=== PATIENT | male | born 1965 | race Caucasian/White ===

== ENCOUNTER 2017-03-04 20:31 | Emergency (ER) | payer OTHER ==
--- NOTE | 2017-03-04 21:26 | ED CLINICAL REPORT ---
Clinical Report - Physicians/Mid Levels [facility] [address] [place] [address] 03/04/2017 20:33 Patient: ADOLPH CARPENTER Time Seen: 20:49; initial patient contact. Arrived- By private vehicle. Historian- patient. HISTORY OF PRESENT ILLNESS Chief Complaint: Injury to the left middle finger. The injury happened today. Occurred at home. The patient sustained a laceration from a sharp edge. Patient is experiencing moderate pain. Patient denies injury to the head or neck. REVIEW OF SYSTEMS The patient sustained a laceration. No swelling, tingling, numbness or foreign body. All systems otherwise negative, except as recorded above. PAST HISTORY Hypothyroidism. SURGERIES: Thyroid Surgery. Medications: Synthroid Oral (Tablet 125 mcg) 1 tablet, daily. Allergies: No Known Drug Allergy. SOCIAL HISTORY Never smoker. Occasional alcohol use. No drug use. ADDITIONAL NOTES The nursing notes have been reviewed. PHYSICAL EXAM Vital Signs: 03/04/2017 20:36 BP: 133/92. HR: 77. RR: 18. O2 saturation: 96%. Temp: 97.9 F. Pain level now: 8/10. Have been reviewed. Hypertensive. Heart rate normal. Respiratory rate normal. Temperature normal. Oxygen saturation normal. Appearance: Alert. Oriented X3. Head: Head atraumatic. Skin: Skin warm and dry. Extremities: Tip of left middle finger: subcutaneous laceration; full thickness tip amputation present. No laceration involving the nail bed or nail fold or nail avulsion on the left middle finger. No wrist injury. No hand injury. Hand and wrist exam otherwise negative. Extremities otherwise negative. Neuro, Vascular and Tendons: Vascular status intact. Motor intact. Tendon function intact. Neuro: Oriented X 3. LABS, X-RAYS, AND EKG Lt UE Digits X-ray: No fracture. No bony lesion. (Soft tissue amputation, no bony involvement). Views: AP, lateral and oblique of 3rd finger. Technique: good. The X-rays were independently viewed by me and interpreted contemporaneously by me. Prior films were not available for comparison. Interpretation time: 21:22. PROGRESS AND PROCEDURES Disposition: Discharged home in good and improved condition. Condition: good. CLINICAL IMPRESSION Single deep skin avulsion of the left middle finger. (No repair). Treatment not delayed. No infection present or foreign body present. INSTRUCTIONS Protect wound and keep wound area clean. (Leave bandage in place until tomorrow afternoon). Change dressing twice daily. You may wash wounds briefly, then dry. Apply bacitracin twice daily. Your Current Medications: CONTINUE TAKING THE FOLLOWING MEDICATIONS: Synthroid Oral : Tablet 125 mcg, 1 tablet daily. Prescription Medications: Hydrocodone/APAP 5mg / 325mg: take 1 orally every 6 hours as needed for pain. Dispense fifteen (15). No refill. Follow-up: Follow up with your doctor in about two days. Call for an appointment. Screening today revealed the patient's blood pressure to be in the hypertensive range. The patient should follow up with a primary care provider for blood pressure management. (Electronically signed by Panchito Saha Dr. 03/04/2017 21:30)
--- NOTE | 2017-03-04 21:26 | ED CLINICAL REPORT ---
Clinical Report - Physicians/Mid Levels [facility] [address] [place] [address] 03/04/2017 20:33 Patient: ADOLPH CARPENTER Time Seen: 20:49; initial patient contact. Arrived- By private vehicle. Historian- patient. HISTORY OF PRESENT ILLNESS Chief Complaint: Injury to the left middle finger. The injury happened today. Occurred at home. The patient sustained a laceration from a sharp edge. Patient is experiencing moderate pain. Patient denies injury to the head or neck. REVIEW OF SYSTEMS The patient sustained a laceration. No swelling, tingling, numbness or foreign body. All systems otherwise negative, except as recorded above. PAST HISTORY Hypothyroidism. SURGERIES: Thyroid Surgery. Medications: Synthroid Oral (Tablet 125 mcg) 1 tablet, daily. Allergies: No Known Drug Allergy. SOCIAL HISTORY Never smoker. Occasional alcohol use. No drug use. ADDITIONAL NOTES The nursing notes have been reviewed. PHYSICAL EXAM Vital Signs: 03/04/2017 20:36 BP: 133/92. HR: 77. RR: 18. O2 saturation: 96%. Temp: 97.9 F. Pain level now: 8/10. Have been reviewed. Hypertensive. Heart rate normal. Respiratory rate normal. Temperature normal. Oxygen saturation normal. Appearance: Alert. Oriented X3. Head: Head atraumatic. Skin: Skin warm and dry. Extremities: Tip of left middle finger: subcutaneous laceration; full thickness tip amputation present. No laceration involving the nail bed or nail fold or nail avulsion on the left middle finger. No wrist injury. No hand injury. Hand and wrist exam otherwise negative. Extremities otherwise negative. Neuro, Vascular and Tendons: Vascular status intact. Motor intact. Tendon function intact. Neuro: Oriented X 3. LABS, X-RAYS, AND EKG Lt UE Digits X-ray: No fracture. No bony lesion. (Soft tissue amputation, no bony involvement). Views: AP, lateral and oblique of 3rd finger. Technique: good. The X-rays were independently viewed by me and interpreted contemporaneously by me. Prior films were not available for comparison. Interpretation time: 21:22. PROGRESS AND PROCEDURES Disposition: Discharged home in good and improved condition. Condition: good. CLINICAL IMPRESSION Single deep skin avulsion of the left middle finger. (No repair). Treatment not delayed. No infection present or foreign body present. INSTRUCTIONS Protect wound and keep wound area clean. (Leave bandage in place until tomorrow afternoon). Change dressing twice daily. You may wash wounds briefly, then dry. Apply bacitracin twice daily. Your Current Medications: CONTINUE TAKING THE FOLLOWING MEDICATIONS: Synthroid Oral : Tablet 125 mcg, 1 tablet daily. Prescription Medications: Hydrocodone/APAP 5mg / 325mg: take 1 orally every 6 hours as needed for pain. Dispense fifteen (15). No refill. Follow-up: Follow up with your doctor in about two days. Call for an appointment. Screening today revealed the patient's blood pressure to be in the hypertensive range. The patient should follow up with a primary care provider for blood pressure management. (Electronically signed by Panchito Saha Dr. 03/04/2017 21:30)
--- NOTE | 2017-03-04 21:26 | ED ORDER SUMMARY ---
..... Patient: ADOLPH CARPENTER OrderSheet [facility] VisitID: [id number] [address] [place] [address] 51y, M Registration Date/Time: 03/04/2017 ORDER SHEET Weight: 92.9 kg (stated) Allergies: No Known Drug Allergy GENERAL ORDERS: Finger Left (3rd) Urgent (20:50 03/04/2017 Lauren Mccullough) (Ack 20:51 AMcQuoid ER Tech1) (20:59 RFay) MEDICATION ORDERS: Tdap IM 0.5 mL (NOW, per protocol) (20:48 03/04/2017 Lauren Mccullough) (Ack 20:50 Rosalie Ellis) (21:26 Lianna Ellis) IV FLUIDS: ORDER SHEET NOTES: [Electronically signed by Panchito Saha Dr. (21:30 03/04/2017)] [Electronically signed by Ary Blair R.N. (21:56 03/04/2017)] [Electronically locked/signed by Ary Blair R.N. (21:56 03/04/2017)]
--- NOTE | 2017-03-04 21:26 | ED NURSING NOTES ---
Clinical Report - Nurses [facility] [address] [place] [address] 03/04/2017 20:33 Patient: ADOLPH CARPENTER TRIAGE Triage time 20:30. Acuity: LEVEL 4. Chief Complaint: INJURY TO LEFT HAND. --20:42 Ary Blair R.N. 20:36 03/04/17. BP: 133/92 taken on the left arm, while sitting. HR: 77 (regular). RR: 18 (regular and unlabored). O2 saturation: 96% on room air. Temp: 97.9 F (oral). Pain level now: 05/25. --20:42 Ary Blair R.N. Weight: 92.9 kg stated. Height/Length: 74 inches. BMI: 26.3. --20:41 Ary Blair R.N. Medications Synthroid Oral (Tablet 125 mcg) 1 tablet, daily. --20:38 Ary Blair R.N. Allergies No Known Drug Allergy. --20:39 Ary Blair R.N. History Arrived by private vehicle. Historian: patient. Accompanied by family. Primary physician (none). This occurred (about 5 hours ago). He sustained a laceration from a sharp edge (pruning marry). ( pt cut pad part of left middle finger off while cutting plants). Treatment SKY DIVER: Applied bandage. (several bandage changes and abx ointment). PAST MEDICAL HX: Date of last tetanus shot cannot be recalled. SOCIAL HX: Never smoker. Alcohol use; consumes two beers a week. No infectious disease exposure. ABUSE ASSESSMENT: No report of abuse. SELF HARM ASSESSMENT: A self harm assessment was performed. The patient answered "no" to the question "Have you recently felt down, depressed, or hopeless?", "Have you noticed less interest or pleasure in doing things?", "Do you have thoughts of harming or killing yourself?", "Are you here because you tried to hurt yourself?", "Have you ever tried to hurt yourself before today?", "Have you recently had thoughts about harming or killing others?" and "Do you have any dangerous items in your possession?". --20:42 Ary Blair R.N. PROBLEMS: Hypothyroidism. --20:39 Ary Blair R.N. ADDITIONAL SURGERIES: Thyroid Surgery. --20:39 Ary Blair R.N. Interventions ID band on patient. --20:42 Ary Blair R.N. PHYSICAL ASSESSMENT Ambulatory to room. GENERAL / NEURO / PSYCH: Oriented X 4. Alert. Appears in no acute distress. EXTREMITIES: Capillary refill is less than 2 seconds in the extremities. Extremity pulses are within normal limits. Extremities exhibit normal ROM. Neuro-vascular status intact to the extremity. Left hand: laceration with bleeding (tip of left middle finger). SKIN: Skin is warm and dry. --20:43 Ary Blair R.N. NURSING PROGRESS NOTES Two patient identifiers checked. Call light placed in reach. Side rails up x 1. Bed placed in lowest position. Brakes of bed on. Patient ready for evaluation- chart flagged. --20:43 Ary Blair R.N. Wound cleansed with water and Hibiclens (soaking). --20:49 Ary Blair R.N. 21:20 03/04/17. ( Gelfoam strip applied to finger tip). --21:41 Jus Cedeño R.N. 21:25 03/04/2017 TDAP IM 0.5 mL given. (Lot#: [id number], expiration date: 02/23/2019, [employer]liance [employer] Counter Clerk: [employer]i pasteur). Given in the right deltoid. Allergies verified and confirmed 5 rights. Vaccine information statement provided to the patient. --21:26 Laura-Emily Hendrickson R.N. DISPOSITION / DISCHARGE Condition at departure: improved and stable. No learning barriers present. Discharge instructions provided and reviewed with the patient. Reviewed medication(s) side effects, precautions, dosing and course information. Prescription(s) given to the patient. Reviewed wound care instructions. Patient verbalized understanding. Written instructions provided in Omani. No activity restrictions or note given. The patient was discharged home and accompanied by spouse. He left the Emergency Department ambulatory and via private vehicle. Spouse driving. --21:55 Ary Blair R.N. 21:53 03/04/17. BP: 125/76 taken on the right arm, while lying. HR: 73 (regular and normal rate). RR: 18. O2 saturation: 98% on room air. Temp: deferred. Pain level now: 03/25. --21:55 Ary Blair R.N. Departure time: 2148. --21:55 Ary Blair R.N. Locked/Released at 03/04/2017 21:56 by Ary Blair R.N.
--- NOTE | 2017-03-04 21:26 | ED NURSING NOTES ---
Clinical Report - Nurses [facility] [address] [place] [address] 03/04/2017 20:33 Patient: ADOLPH CARPENTER TRIAGE Triage time 20:30. Acuity: LEVEL 4. Chief Complaint: INJURY TO LEFT HAND. --20:42 Ary Blair R.N. 20:36 03/04/17. BP: 133/92 taken on the left arm, while sitting. HR: 77 (regular). RR: 18 (regular and unlabored). O2 saturation: 96% on room air. Temp: 97.9 F (oral). Pain level now: 05/25. --20:42 Ary Blair R.N. Weight: 92.9 kg stated. Height/Length: 74 inches. BMI: 26.3. --20:41 Ary Blair R.N. Medications Synthroid Oral (Tablet 125 mcg) 1 tablet, daily. --20:38 Ary Blair R.N. Allergies No Known Drug Allergy. --20:39 Ary Blair R.N. History Arrived by private vehicle. Historian: patient. Accompanied by family. Primary physician (none). This occurred (about 5 hours ago). He sustained a laceration from a sharp edge (pruning marry). ( pt cut pad part of left middle finger off while cutting plants). Treatment BINGO ATTENDANT: Applied bandage. (several bandage changes and abx ointment). PAST MEDICAL HX: Date of last tetanus shot cannot be recalled. SOCIAL HX: Never smoker. Alcohol use; consumes two beers a week. No infectious disease exposure. ABUSE ASSESSMENT: No report of abuse. SELF HARM ASSESSMENT: A self harm assessment was performed. The patient answered "no" to the question "Have you recently felt down, depressed, or hopeless?", "Have you noticed less interest or pleasure in doing things?", "Do you have thoughts of harming or killing yourself?", "Are you here because you tried to hurt yourself?", "Have you ever tried to hurt yourself before today?", "Have you recently had thoughts about harming or killing others?" and "Do you have any dangerous items in your possession?". --20:42 Ary Blair R.N. PROBLEMS: Hypothyroidism. --20:39 Ary Blair R.N. ADDITIONAL SURGERIES: Thyroid Surgery. --20:39 Ary Blair R.N. Interventions ID band on patient. --20:42 Ary Blair R.N. PHYSICAL ASSESSMENT Ambulatory to room. GENERAL / NEURO / PSYCH: Oriented X 4. Alert. Appears in no acute distress. EXTREMITIES: Capillary refill is less than 2 seconds in the extremities. Extremity pulses are within normal limits. Extremities exhibit normal ROM. Neuro-vascular status intact to the extremity. Left hand: laceration with bleeding (tip of left middle finger). SKIN: Skin is warm and dry. --20:43 Ary Blair R.N. NURSING PROGRESS NOTES Two patient identifiers checked. Call light placed in reach. Side rails up x 1. Bed placed in lowest position. Brakes of bed on. Patient ready for evaluation- chart flagged. --20:43 Ary Blair R.N. Wound cleansed with water and Hibiclens (soaking). --20:49 Ary Blair R.N. 21:20 03/04/17. ( Gelfoam strip applied to finger tip). --21:41 Jus Cedeño R.N. 21:25 03/04/2017 TDAP IM 0.5 mL given. (Lot#: [id number], expiration date: 02/23/2019, Business Process Coordinator: sanofi pasteur). Given in the right deltoid. Allergies verified and confirmed 5 rights. Vaccine information statement provided to the patient. --21:26 Laura-Emily Hendrickson R.N. DISPOSITION / DISCHARGE Condition at departure: improved and stable. No learning barriers present. Discharge instructions provided and reviewed with the patient. Reviewed medication(s) side effects, precautions, dosing and course information. Prescription(s) given to the patient. Reviewed wound care instructions. Patient verbalized understanding. Written instructions provided in Qatari. No activity restrictions or note given. The patient was discharged home and accompanied by spouse. He left the Emergency Department ambulatory and via private vehicle. Spouse driving. --21:55 Ary Blair R.N. 21:53 03/04/17. BP: 125/76 taken on the right arm, while lying. HR: 73 (regular and normal rate). RR: 18. O2 saturation: 98% on room air. Temp: deferred. Pain level now: 03/25. --21:55 Ary Blair R.N. Departure time: 2148. --21:55 Ary Blair R.N. Locked/Released at 03/04/2017 21:56 by Ary Blair R.N.
--- NOTE | 2017-03-04 21:26 | ED ORDER SUMMARY ---
..... Patient: ADOLPH CARPENTER OrderSheet [facility] VisitID: [id number] [address] [place] [address] 51y, M Registration Date/Time: 03/04/2017 ORDER SHEET Weight: 92.9 kg (stated) Allergies: No Known Drug Allergy GENERAL ORDERS: Finger Left (3rd) Urgent (20:50 03/04/2017 Lauren Mccullough) (Ack 20:51 AMcQuoid ER Tech1) (20:59 RFay) MEDICATION ORDERS: Tdap IM 0.5 mL (NOW, per protocol) (20:48 03/04/2017 Lauren Mccullough) (Ack 20:50 Rosalie Ellis) (21:26 Lianna Ellis) IV FLUIDS: ORDER SHEET NOTES: [Electronically signed by Panchito Saha Dr. (21:30 03/04/2017)] [Electronically signed by Ary Blair R.N. (21:56 03/04/2017)] [Electronically locked/signed by Ary Blair R.N. (21:56 03/04/2017)]
--- NOTE | 2017-03-04 21:56 | ED MED RECONCILIATION SUMMARY ---
Patient: ADOLPH CARPENTER Medication Reconciliation Report [facility] VisitID: [id number] [address] [place] [address] 51y, M Registration Date/Time: 03/04/2017 Weight: 92.9 kg Height/Length: 74 in. BMI: 26.3 ALLERGIES: No Known Drug Allergy The patient's Home Medications are listed below: CONTINUE TAKING THE FOLLOWING MEDICATIONS: Synthroid Oral (125 mcg) 1 tablet, daily The source(s) of the original Home Medication information: Not obtained. The following Medications were given to the patient in the Emergency Department: TDAP [IM] IM 0.5 mL, administered: 03/04/2017 9:25:00 PM The following Medications were prescribed to the patient: Hydrocodone/APAP 5mg / 325mg: take 1 orally every 6 hours as needed for pain. Dispense fifteen (15). No refill. -- Panchito Saha Dr.
--- NOTE | 2017-03-04 21:56 | ED MED RECONCILIATION SUMMARY ---
Patient: ADOLPH CARPENTER Medication Reconciliation Report [facility] VisitID: [id number] [address] [place] [address] 51y, M Registration Date/Time: 03/04/2017 Weight: 92.9 kg Height/Length: 74 in. BMI: 26.3 ALLERGIES: No Known Drug Allergy The patient's Home Medications are listed below: CONTINUE TAKING THE FOLLOWING MEDICATIONS: Synthroid Oral (125 mcg) 1 tablet, daily The source(s) of the original Home Medication information: Not obtained. The following Medications were given to the patient in the Emergency Department: TDAP [IM] IM 0.5 mL, administered: 03/04/2017 9:25:00 PM The following Medications were prescribed to the patient: Hydrocodone/APAP 5mg / 325mg: take 1 orally every 6 hours as needed for pain. Dispense fifteen (15). No refill. -- Panchito Saha Dr.
--- NOTE | 2017-03-04 21:56 | ED MAR SUMMARY ---
..... Medication Administration Record [facility] [address] [place] [address] Patient: ADOLPH CARPENTER Visit ID: [id number] 51y, M Weight: 92.9 kg Height/Length: 74 in BMI: 26.3 ALLERGIES: No Known Drug Allergy Given 21:25 03/04/2017 Emily Funk RKevin Medication Administered: TDAP [IM], Dose: 0.5 mL IM. Medication Ordered: Tdap IM 0.5 mL (NOW, per protocol).
--- NOTE | 2017-03-04 21:56 | ED MAR SUMMARY ---
..... Medication Administration Record [facility] [address] [place] [address] Patient: ADOLPH CARPENTER Visit ID: [id number] 51y, M Weight: 92.9 kg Height/Length: 74 in BMI: 26.3 ALLERGIES: No Known Drug Allergy Given 21:25 03/04/2017 Emily Funk RKevin Medication Administered: TDAP [IM], Dose: 0.5 mL IM. Medication Ordered: Tdap IM 0.5 mL (NOW, per protocol).
--- NOTE | 2017-03-04 21:56 | ED DISCHARGE INSTRUCTIONS ---
Patient: ADOLPH CARPENTER General Instructions [facility] VisitID: [id number] [place] [address] 51y, M Registration Date/Time: 03/04/2017 Single deep skin avulsion of the left middle finger. (No repair). Treatment not delayed. No infection present or foreign body present. INSTRUCTIONS Protect wound and keep wound area clean. (Leave bandage in place until tomorrow afternoon). Change dressing twice daily. You may wash wounds briefly, then dry. Apply bacitracin twice daily. Your Current Medications: CONTINUE TAKING THE FOLLOWING MEDICATIONS: Synthroid Oral : Tablet 125 mcg, 1 tablet daily. Prescription Medications: Hydrocodone/APAP 5mg / 325mg: take 1 orally every 6 hours as needed for pain. Dispense fifteen (15). No refill. Follow-up: Follow up with your doctor in about two days. Call for an appointment. Screening today revealed the patient's blood pressure to be in the hypertensive range. The patient should follow up with a primary care provider for blood pressure management. ADDITIONAL INFORMATION Bandage Change If the bandage becomes wet or dirty, replace it. Otherwise, leave it in place for the first 24 hours. Then once a day: After removing the bandage, wash the area with soap and water. Use a wet cotton swab to loosen and remove any blood or crust that forms on the wound. After cleaning, apply a thin layer of antibiotic ointment or cream. Reapply the bandage. You may shower as usual after the first 24 hours. If the bandage is on an arm or leg, cover it with a plastic bag rubber banded at both ends before showering. No tub baths or swimming until the bandage is removed and the wound healed (at least 7 days). Gelfoam Dressing Change Gelfoam is a material used in fresh open wounds to stop bleeding. The Gelfoam is applied directly to the base of the wound and it helps the blood to form a clot. Another bandage is applied on top of the Gelfoam to protect it and keep it in place. The Gelfoam material in contact with the wound base will dissolve or fall off with the scab. Any remaining Gelfoam may be removed during a follow-up visit. Home care The following guidelines will help you care for your wound at home: Keep the dressing dry until the next dressing change or visit with your doctor. Bathe with your dressing out of the water, protected with a large, rubber-banded plastic bag. If the dressing becomes wet, it will need to be changed. If you were advised to change the dressing at home: Wash your hands. Remove the outer bandage covering the Gelfoam. The outer bandage might stick to the Gelfoam due to blood in the bandage. If that happens, run warm water over the dressing until the dried blood softens and you can peel the dressing away from the Gelfoam. Be careful not to pull the Gelfoam off the wound. If the warm water method alone does not work to loosen the bandage, you may pour hydrogen peroxide over the dressing. This will be more effective in softening the dried blood. If this doesnt work and you are having difficulty, return to this facility and let us replace the dressing for you. After the bandage is removed, rinse with soap and water. Inspect the area around the wound for redness, swelling, or pus. Apply an antibiotic ointment over the Gelfoam to keep it from sticking to the new bandage. Reapply another bandage or large adhesive bandage. No tub baths or swimming until the bandage is removed and the wound healed (at least seven days). If you were given an appointment for wound check or dressing change, be sure to keep this appointment. Follow-up care Follow up with your doctor, or as advised by our staff. Most open wounds heal within 1014 days. However, even with proper treatment a wound infection may sometimes occur. Therefore, you should check the wound daily for signs of infection listed below. When to seek medical care Get prompt medical attention or contact your doctor if any of the following occur: Increasing pain in the wound Redness, swelling, or pus coming from the wound Fever of 100.4F (38C) or higher, or as directed by your health care provider Bleeding not controlled by direct pressure Hydrocodone Bitartrate, Acetaminophen Oral tablet What is this medicine? ACETAMINOPHEN; HYDROCODONE (a set a OSORIO sammie fen; angela droe KOE done) is a pain reliever. It is used to treat mild to moderate pain. How should I use this medicine? Take this medicine by mouth. Swallow it with a full glass of water. Follow the directions on the prescription label. If the medicine upsets your stomach, take the medicine with food or milk. Do not take more than you are told to take. Talk to your machine set up regarding the use of this medicine in children. This medicine is not approved for use in children. What side effects may I notice from receiving this medicine? Side effects that you should report to your doctor or health women's health care nurse practitioner as soon as possible: allergic reactions like skin rash, itching or hives, swelling of the face, lips, or tongue breathing problems confusion feeling faint or lightheaded, falls stomach pain yellowing of the eyes or skin Side effects that usually do not require medical attention (report to your doctor or health women's health care nurse practitioner if they continue or are bothersome): nausea, vomiting stomach upset What may interact with this medicine? alcohol antihistamines isoniazid medicines for depression, anxiety, or psychotic disturbances medicines for sleep muscle relaxants naltrexone narcotic medicines (opiates) for pain phenobarbital ritonavir tramadol What if I miss a dose? If you miss a dose, take it as soon as you can. If it is almost time for your next dose, take only that dose. Do not take double or extra doses. Where should I keep my medicine? Keep out of the reach of children. This medicine can be abused. Keep your medicine in a safe place to protect it from theft. Do not share this medicine with anyone. Selling or giving away this medicine is dangerous and against the law. Store at room temperature between 15 and 30 degrees C (59 and 86 degrees F). Protect from light. Keep container tightly closed. Throw away any unused medicine after the expiration date. Discard unused medicine and used packaging carefully. Pets and children can be harmed if they find used or lost packages. What should I tell my health care provider before I take this medicine? They need to know if you have any of these conditions: brain tumor Crohn's disease, inflammatory bowel disease, or ulcerative colitis drink more than 3 alcohol-containing drinks per day drug abuse or addiction head injury heart or circulation problems kidney disease or problems going to the bathroom liver disease lung disease, asthma, or breathing problems an unusual or allergic reaction to acetaminophen, hydrocodone, other opioid analgesics, other medicines, foods, dyes, or preservatives or trying to get breast-feeding What should I watch for while using this medicine? Tell your doctor or health women's health care nurse practitioner if your pain does not go away, if it gets worse, or if you have new or a different type of pain. You may develop tolerance to the medicine. Tolerance means that you will need a higher dose of the medicine for pain relief. Tolerance is normal and is expected if you take the medicine for a long time. Do not suddenly stop taking your medicine because you may develop a severe reaction. Your body becomes used to the medicine. This does NOT mean you are addicted. Addiction is a behavior related to getting and using a drug for a non-medical reason. If you have pain, you have a medical reason to take pain medicine. Your doctor will tell you how much medicine to take. If your doctor wants you to stop the medicine, the dose will be slowly lowered over time to avoid any side effects. You may get drowsy or dizzy when you first start taking the medicine or change doses. Do not drive, use machinery, or do anything that may be dangerous until you know how the medicine affects you. Stand or sit up slowly. There are different types of narcotic medicines (opiates) for pain. If you take more than one type at the same time, you may have more side effects. Give your health care provider a list of all medicines you use. Your doctor will tell you how much medicine to take. Do not take more medicine than directed. Call emergency for help if you have problems breathing. The medicine will cause constipation. Try to have a bowel movement at least every 2 to 3 days. If you do not have a bowel movement for 3 days, call your doctor or health women's health care nurse practitioner. Too much acetaminophen can be very dangerous. Do not take Tylenol (acetaminophen) or medicines that contain acetaminophen with this medicine. Many non-prescription medicines contain acetaminophen. Always read the labels carefully. You have been given the following additional information: Dressing Change Gelfoam Dressing Hydrocodone Bitartrate, Acetaminophen Oral tablet (Electronically signed by Panchito Saha Dr. 03/04/2017 21:30)
--- NOTE | 2017-03-04 22:59 | DIAGNOSTIC IMAGING REPORT ---
PROCEDURE: XR FINGER - LEFT INDICATION: TRAUMA/INJURY TECHNIQUE: A P hand and two views of the left third digit. COMPARISON: None. FINDINGS: Normal mineralization. No fractures. Normal osseous alignment. No suspicious soft-tissue calcification or radiodense foreign bodies. Soft tissue irregularity over the distal aspect of the digit. IMPRESSION: 1. Intact hand and left third digit. 2. No radiodense foreign bodies in the tissue.
== END 2017-03-04 21:49 | disposition home or self-care (01) ==
LOC: ED SRH 20:31
DX: S61.213A Laceration without foreign body of left middle finger without damage to nail, initial encounter (principal); W26.9XXA Contact with unspecified sharp object(s), initial encounter; Y93.9 Activity, unspecified; Y99.9 Unspecified external cause status; Y92.009 Unspecified place in unspecified non-institutional (private) residence as the place of occurrence of the external cause; E07.9 Disorder of thyroid, unspecified; Z79.899 Other long term (current) drug therapy; Z23 Encounter for immunization